=== PATIENT | male | born 1950 | race Hispanic/Latino ===

== ENCOUNTER 2018-09-06 20:39 | Emergency (ER) | payer OTHER ==
[2018-09-06 22:12] LABS: APPEARANCE,URINE Clear (CLEAR); BILIRUBIN,URINE Negative (NEGATIVE); COLOR,URINE Yellow (YELLOW); GLUCOSE, URINE (UA) Negative (NEGATIVE); KETONES,URINE Negative (NEGATIVE); LEUKOCYTE ESTERASE ,URINE Negative (NEGATIVE); NITRATE,URINE Negative (NEGATIVE); OCCULT BLOOD,URINE Negative (NEGATIVE); PROTEIN,URINE Negative (NEGATIVE)
[2018-09-06 22:20] LABS: AMPHET/METH SCREEN,URINE NEGATIVE (NEGATIVE); BARBITURATE SCREEN, URINE NEGATIVE (NEGATIVE); BENZODIAZEPINES SCREEN,URINE NEGATIVE (NEGATIVE); CANNABINOID SCREEN,URINE POSITIVE (NEGATIVE); COCAINE SCREEN,URINE NEGATIVE (NEGATIVE); OPIATE SCREEN,URINE NEGATIVE (NEGATIVE); PHENCYCLIDINE SCREEN,URINE NEGATIVE (NEGATIVE)
[2018-09-06 22:25] LABS: BASOPHILS % (AUTO) 1.1 % (0.0-5.0); EOSINOPHILS % (AUTO) 2.2 % (0.0-8.0); HEMATOCRIT 44.2 % (42-54); MEAN CORPUSCULAR HEMOGLOBIN 32.9 pg (27.0-33.0); MEAN CORPUSCULAR HGB CONC 35.2 g/dL (32.0-36.0); MEAN CORPUSCULAR VOLUME 93.3 fL (79-99); MONOCYTES % (AUTO) 10.2 % (3.0-13.0); NEUTROPHILS % (AUTO) 55.5 % (40.0-77.0); NUCLEATED RED BLOOD CELLS 0.1 % (0.0-0.19); PLATELET COUNT (AUTO) 138 K/uL (130-400); RED BLOOD CELL COUNT(AUTO) 4.74 MIL/uL (4.50-6.20); RED CELL DISTRIBUTION WIDTH 14.4 % (11.0-15.5); WHITE BLOOD COUNT (AUTO) 7.7 K/uL (4.8-10.8)
[2018-09-06 22:34] LABS: CREATININE 0.8 mg/dL (0.5-1.5); POTASSIUM 3.7 mmol/L (3.5-5.1)
[2018-09-06 22:38] LABS: ALBUMIN 3.5 g/dL (3.5-5.0); BILIRUBIN,TOTAL 0.4 mg/dL (0.2-1.0); TOTAL PROTEIN, SERUM 8.1 g/dL (6.0-8.3)
[2018-09-06 22:51] LABS: B-TYPE NATRIURETIC PEPTIDE 16 pg/mL (0-100)
[2018-09-06] MEDS ORDERED: THIAMINE HCL 100 MG/ML 2ML VIAL ONE (23:05)
== END 2018-09-06 23:45 | disposition home or self-care (01) ==
LOC: EDH 20:39
DX: F10.929 Alcohol use, unspecified with intoxication, unspecified (principal); R53.1 Weakness; R03.0 Elevated blood-pressure reading, without diagnosis of hypertension
CPT/HCPCS: 36415; 71045; 80053; 80305; 81003; 83880; 84484; 85025; 93005; 96365; 99285; G0480; J3411

== ENCOUNTER 2021-02-20 18:43 | Inpatient (IN) | payer OTHER ==
[~2021-02-20] VITALS: Ht 154.9 cm; Wt 65.0 kg
[~2021-02-20 18:43] MED LIST: ALBUMIN (HUMAN) 25% 50 ML IV ONE; AMINOCAPROIC ACID 5,000MG VIAL IV ONE; HEPARIN 10,000 UNIT/10ML (1,000 UNIT/ML) VIAL IV ONE; MAGNESIUM SULFATE 1 GM/2 ML VIAL IM ONE; NOREPINEPHRINE BITARTRATE 1 MG/1 ML ML IV ONE; PHENYLEPHRINE HCL 10 MG/ML 1ML VIAL IV ONE; SODIUM BICARB 8.4% 50ML SYRINGE IVP ONE
[2021-02-20 19:25] LABS: APPEARANCE,URINE Clear (CLEAR); BILIRUBIN,URINE Negative (NEGATIVE); COLOR,URINE Yellow (YELLOW); GLUCOSE, URINE (UA) Negative (NEGATIVE); KETONES,URINE Negative (NEGATIVE); LEUKOCYTE ESTERASE ,URINE Negative (NEGATIVE); NITRATE,URINE Negative (NEGATIVE); OCCULT BLOOD,URINE Negative (NEGATIVE); PH,URINE 5.5 (5.0-8.0); PROTEIN,URINE Negative (NEGATIVE)
[2021-02-20 19:41] LABS: BASOPHILS % (AUTO) 0.9 % (0.0-5.0); EOSINOPHILS % (AUTO) 0.2 % (0.0-8.0); HEMATOCRIT 37.3 % (42-54); LYMPHOCYTES % (AUTO) 14.9 % (21.0-51.0); MEAN CORPUSCULAR HEMOGLOBIN 33.4 pg (27.0-33.0); MEAN CORPUSCULAR HGB CONC 34.3 g/dL (32.0-36.0); MEAN CORPUSCULAR VOLUME 97.4 fL (79-99); MONOCYTES % (AUTO) 7.7 % (3.0-13.0); NEUTROPHILS % (AUTO) 75.8 % (40.0-77.0); PLATELET COUNT (AUTO) 174 K/uL (130-400); RED BLOOD CELL COUNT(AUTO) 3.83 MIL/uL (4.50-6.20); RED CELL DISTRIBUTION WIDTH 13.2 % (11.0-15.5); WHITE BLOOD COUNT (AUTO) 8.5 K/uL (4.8-10.8)
[2021-02-20 19:55] LABS: CREATININE 0.9 mg/dL (0.5-1.5)
[2021-02-20 20:06] LABS: BILIRUBIN,TOTAL 0.8 mg/dL (0.2-1.0); TOTAL PROTEIN, SERUM 8.4 g/dL (6.0-8.3)
[2021-02-20] MEDS ORDERED: CLOPIDOGREL 300MG TAB PO SCH (20:26)
[2021-02-20] MEDS ORDERED: HEPARIN 5,000 UNIT VIAL IV ONE (20:30)
[2021-02-20] MEDS ORDERED: FUROSEMIDE 40MG VIAL IV ONE (20:30)
[2021-02-20] MEDS ORDERED: METOPROLOL TARTRATE 1 MG/ML 5ML VIAL IV ONE (20:30)
[2021-02-20] MEDS ORDERED: HEPARIN 25,000 UNITS/250ML D5W 250 ML IV SCH (20:30)
[2021-02-20] MEDS ORDERED: ONDANSETRON 4MG INJ IV PRN (21:00)
[2021-02-20] MEDS ORDERED: FUROSEMIDE 20MG VIAL IV SCH (21:00)
[2021-02-20] MEDS ORDERED: LACTULOSE 20 GM/30 ML UDCUP PO PRN (21:00)
[2021-02-20] MEDS ORDERED: NITROGLYCERIN 0.4 MG SL TAB SL PRN (21:00)
[2021-02-20] MEDS ORDERED: POTASSIUM CHLORIDE 10% ELIXIR 20 MEQ/15 ML UDCUP PO PRN (21:00)
[2021-02-20] MEDS ORDERED: ACETAMINOPHEN 325 MG TAB PO PRN ×2 (21:00)
[2021-02-20] MEDS: FAMOTIDINE 20MG TAB PO SCH (21:00)
[2021-02-20] MEDS ORDERED: NITROGLYCERIN 1GM OINT 1 INCH/1GM TD SCH (21:00)
[2021-02-20] MEDS ORDERED: LIDOCAINE HCL-MPF 1% 2ML VIAL IV PRN (21:00)
[2021-02-20] MEDS ORDERED: METOPROLOL TARTRATE 25 MG TAB PO SCH (21:00)
[2021-02-20] MEDS: INSULIN HUMULIN R 100 UNIT/ML 3ML SQ SCH (21:00)
[2021-02-20 21:10] LABS: INR 1.11 (0.85-1.15)
[2021-02-20 21:11] LABS: PARTIAL THROMBOPLASTIN TIME 28.2 SEC (26.3-35.5)
[2021-02-21 03:08] LABS: INR 1.43 (0.85-1.15); PROTHROMBIN TIME 15.1 SEC (9.6-11.6)
[2021-02-21 03:35] LABS: PARTIAL THROMBOPLASTIN TIME > 139.0 SEC (26.3-35.5)
[2021-02-21 05:10] LABS: BASOPHILS % (AUTO) 1.3 % (0.0-5.0); EOSINOPHILS % (AUTO) 0.2 % (0.0-8.0); HEMATOCRIT 33.1 % (42-54); LYMPHOCYTES % (AUTO) 26.8 % (21.0-51.0); MEAN CORPUSCULAR HEMOGLOBIN 33.1 pg (27.0-33.0); MEAN CORPUSCULAR HGB CONC 34.1 g/dL (32.0-36.0); MEAN CORPUSCULAR VOLUME 97.1 fL (79-99); MONOCYTES % (AUTO) 10.7 % (3.0-13.0); NEUTROPHILS % (AUTO) 60.5 % (40.0-77.0); PLATELET COUNT (AUTO) 145 K/uL (130-400); RED BLOOD CELL COUNT(AUTO) 3.41 MIL/uL (4.50-6.20); RED CELL DISTRIBUTION WIDTH 13.1 % (11.0-15.5); WHITE BLOOD COUNT (AUTO) 6.3 K/uL (4.8-10.8)
[2021-02-21 05:35] LABS: ALBUMIN 1.8 g/dL (3.5-5.0); BILIRUBIN,TOTAL 0.6 mg/dL (0.2-1.0); CREATININE 0.6 mg/dL (0.5-1.5); MAGNESIUM 1.5 mg/dL (1.80-2.40); THYROID STIMULATING HORMONE 3.6 uIU/mL (0.36-3.74); TOTAL PROTEIN, SERUM 5.4 g/dL (6.0-8.3)
[2021-02-21 05:38] LABS: POTASSIUM 2.9 mmol/L (3.5-5.1)
[2021-02-21] MEDS: KCL 20 MEQ ERTAB PO PRN (05:47)
[2021-02-21] MEDS: INSULIN HUMULIN R 100 UNIT/ML 3ML SQ SCH ×4 (07:30→21:00)
[2021-02-21] MEDS: ASPIRIN 81 MG EC TAB PO SCH (08:27)
[2021-02-21] MEDS: FUROSEMIDE 20MG VIAL IV SCH ×3 (08:27→21:01)
[2021-02-21] MEDS: FAMOTIDINE 20MG TAB PO SCH ×2 (08:27→21:01)
[2021-02-21] MEDS ORDERED: METOPROLOL SUCCINATE 50 MG TAB.SR.24H PO SCH (09:00)
[2021-02-21] MEDS: ENOXAPARIN SODIUM 30 MG/0.3 ML SQ SCH ×2 (10:57→21:01)
[2021-02-21] MEDS ORDERED: THIAMINE HCL 100 MG/ML 2ML VIAL IVP SCH (15:00)
[2021-02-21] MEDS: ATORVASTATIN 40 MG TABLET PO SCH (21:01)
[2021-02-22] VITALS (51 sets, daily range): BP systolic 70–169; BP diastolic 33–114
[2021-02-22] MEDS ORDERED: DOPAMINE HCL 400 MG/D5%-WATER 250 ML IV STA (02:07)
[2021-02-22] MEDS ORDERED: MORPHINE 2 MG SYG IVP STA (02:13)
[2021-02-22 04:34] LABS: BASOPHILS % (AUTO) 1.7 % (0.0-5.0); EOSINOPHILS % (AUTO) 0.4 % (0.0-8.0); LYMPHOCYTES % (AUTO) 24.4 % (21.0-51.0); MEAN CORPUSCULAR HEMOGLOBIN 32.7 pg (27.0-33.0); MEAN CORPUSCULAR HGB CONC 32.9 g/dL (32.0-36.0); MEAN CORPUSCULAR VOLUME 99.5 fL (79-99); MONOCYTES % (AUTO) 8.4 % (3.0-13.0); NEUTROPHILS % (AUTO) 64.7 % (40.0-77.0); PLATELET COUNT (AUTO) 186 K/uL (130-400); RED BLOOD CELL COUNT(AUTO) 3.82 MIL/uL (4.50-6.20); RED CELL DISTRIBUTION WIDTH 13.2 % (11.0-15.5); WHITE BLOOD COUNT (AUTO) 7.5 K/uL (4.8-10.8)
[2021-02-22 04:58] LABS: BILIRUBIN,TOTAL 0.7 mg/dL (0.2-1.0); CREATININE 1.2 mg/dL (0.5-1.5); POTASSIUM 4.1 mmol/L (3.5-5.1); TOTAL PROTEIN, SERUM 8.3 g/dL (6.0-8.3)
[2021-02-22] MEDS: INSULIN HUMULIN R 100 UNIT/ML 3ML SQ SCH ×4 (07:30→21:00)
[2021-02-22] MEDS ORDERED: LORAZEPAM 2 MG/ML 1 ML VIAL IVP SCH (08:30)
[2021-02-22] MEDS: THIAMINE HCL 100 MG TABLET PO SCH (09:00)
[2021-02-22] MEDS: PRENATAL VITAMIN RX TABLET PO SCH (09:00)
[2021-02-22] MEDS: FAMOTIDINE 20MG TAB PO SCH ×2 (09:00→21:13)
[2021-02-22] MEDS: ASPIRIN 81 MG EC TAB PO SCH (09:00)
[2021-02-22] MEDS: FUROSEMIDE 20MG VIAL IV SCH ×3 (10:24→21:13)
[2021-02-22] MEDS ORDERED: IOHEXOL 350 MG/ML 100ML INFUS..BTL IV ONE (12:08)
[2021-02-22] MEDS ORDERED: IOHEXOL-350 50ML VIAL IV ONE (12:08)
[2021-02-22] MEDS ORDERED: MIDAZOLAM HCL 1 MG/ML 2ML VIAL ONE (12:08)
[2021-02-22] MEDS ORDERED: NITROGLYCERIN 2 MG VIAL IV ONE (12:08)
[2021-02-22] MEDS ORDERED: LIDOCAINE HCL 400MG/20ML VIAL ONE (12:09)
[2021-02-22] MEDS ORDERED: FENTANYL CITRATE PF 50 MCG/1 ML 2ML VIAL ONE (12:09)
[2021-02-22] MEDS ORDERED: PHARMACY COMMUNICATION MISC SCH (14:00)
[2021-02-22] MEDS: 0.9%NACL 10ML VIAL IVP SCH ×2 (14:00→21:14)
[2021-02-22] MEDS ORDERED: KCL 20 MEQ ERTAB PO PRN (14:30)
[2021-02-22] MEDS ORDERED: DIAZEPAM 5 MG/ML 2 ML SYG IVP ONE (14:30)
[2021-02-22] MEDS ORDERED: POTASSIUM CHLORIDE 20MEQ/100ML 100 ML IV PRN ×2 (14:30)
[2021-02-22] MEDS ORDERED: LORAZEPAM 2 MG/ML 1 ML VIAL IVP PRN (14:30)
[2021-02-22] MEDS ORDERED: MAGNESIUM 2GM PREMIX 50ML 50 ML IV PRN (14:30)
[2021-02-22] MEDS ORDERED: NOREPINEPHRIN 4MG/NS 250ML 250 ML IV ONE (14:30)
[2021-02-22] MEDS ORDERED: LIDOCAINE HCL-MPF 1% 2ML VIAL IV PRN ×2 (14:30)
[2021-02-22] MEDS ORDERED: POTASSIUM CHLORIDE 10% ELIXIR 20 MEQ/15 ML UDCUP PO PRN (14:30)
[2021-02-22] MEDS: M.V.I. IV [ADULT] 10 ML, FOLIC ACID 1 MG, THIAMINE HCL 100 MG in 0.9%NACL 1000ML 1,000 ML IV SCH (15:46)
[2021-02-22] MEDS: [UNRECOGNIZED DRUG - REMARK] MISC SCH (17:26)
[2021-02-22] MEDS: KCL 20 MEQ ERTAB PO PRN ×2 (17:51→21:13)
[2021-02-22] MEDS: POTASSIUM CHLORIDE 20MEQ/100ML 100 ML IV PRN (17:51)
[2021-02-22] MEDS ORDERED: HEPARIN 25,000 UNITS/250ML D5W 250 ML IV PRN (18:00)
[2021-02-22] MEDS: IPRATROPIUM 0.5 MG/2.5 ML INH IH SCH ×2 (18:00→18:57)
[2021-02-22] MEDS: ATORVASTATIN 40 MG TABLET PO SCH (21:13)
[2021-02-22 21:22] LABS: MAGNESIUM 1.9 mg/dL (1.80-2.40); POTASSIUM 3.8 mmol/L (3.5-5.1)
[2021-02-22 22:51] LABS: INR 1.16 (0.85-1.15); PROTHROMBIN TIME 12.5 SEC (9.6-11.6)
[2021-02-22 22:52] LABS: PARTIAL THROMBOPLASTIN TIME 29.2 SEC (26.3-35.5)
[2021-02-22] MEDS ORDERED: HEPARIN 5,000 UNIT VIAL ONE (23:05)
[2021-02-22] MEDS: MAGNESIUM 2GM PREMIX 50ML 50 ML IV SCH (23:20)
[2021-02-23] VITALS (111 sets, daily range): BP systolic 77–137; BP diastolic 42–90
[2021-02-23] MEDS: IPRATROPIUM 0.5 MG/2.5 ML INH IH SCH ×3 (00:52→18:51)
[2021-02-23 04:00] LABS: ALBUMIN 2.2 g/dL (3.5-5.0); BILIRUBIN,TOTAL 0.6 mg/dL (0.2-1.0); CREATININE 0.9 mg/dL (0.5-1.5); MAGNESIUM 8.9 mg/dL (1.80-2.40); PHOSPHORUS 3.8 mg/dL (2.5-4.9); POTASSIUM 4.2 mmol/L (3.5-5.1); THYROID STIMULATING HORMONE 3.45 uIU/mL (0.36-3.74); TOTAL PROTEIN, SERUM 6.8 g/dL (6.0-8.3)
[2021-02-23 04:32] LABS: ABG BASE EXCESS 0.8 mmol/L (-2.0-3.0); ABG HCO3 23.6 mmol/L (21.0-28.0); ABG OXYGEN SATURATION 95.4 % (95.0-99.0); ABG PCO2 33 mmHg (35-48)
[2021-02-23 05:09] LABS: HEMATOCRIT 33.4 % (42-54); MEAN CORPUSCULAR HEMOGLOBIN 32.9 pg (27.0-33.0); MEAN CORPUSCULAR HGB CONC 33.5 g/dL (32.0-36.0); MEAN CORPUSCULAR VOLUME 98.2 fL (79-99); RED BLOOD CELL COUNT(AUTO) 3.4 MIL/uL (4.50-6.20); RED CELL DISTRIBUTION WIDTH 13.2 % (11.0-15.5); WHITE BLOOD COUNT (AUTO) 5.8 K/uL (4.8-10.8)
[2021-02-23 05:22] LABS: INR 1.23 (0.85-1.15); PROTHROMBIN TIME 13.2 SEC (9.6-11.6)
[2021-02-23 05:43] LABS: PARTIAL THROMBOPLASTIN TIME < 20.0 SEC (26.3-35.5)
[2021-02-23] MEDS ORDERED: HEPARIN 5,000 UNIT VIAL ONE (06:18)
[2021-02-23] MEDS: 0.9%NACL 10ML VIAL IVP SCH ×3 (06:21→23:58)
[2021-02-23] MEDS: INSULIN HUMULIN R 100 UNIT/ML 3ML SQ SCH ×4 (07:30→21:00)
[2021-02-23] MEDS: [UNRECOGNIZED DRUG - REMARK] MISC SCH ×3 (08:00→17:00)
[2021-02-23] MEDS: THIAMINE HCL 100 MG TABLET PO SCH (08:46)
[2021-02-23] MEDS: ASPIRIN 81 MG EC TAB PO SCH (08:46)
[2021-02-23] MEDS: LORAZEPAM 2 MG/ML 1 ML VIAL IVP PRN ×5 (08:48→23:03)
[2021-02-23] MEDS: FAMOTIDINE 20MG TAB PO SCH ×2 (08:48→21:00)
[2021-02-23] MEDS: PRENATAL VITAMIN RX TABLET PO SCH (08:48)
[2021-02-23] MEDS: FUROSEMIDE 20MG VIAL IV SCH ×2 (08:49→13:19)
[2021-02-23 09:23] LABS: ALBUMIN 2.4 g/dL (3.5-5.0); BILIRUBIN,TOTAL 0.6 mg/dL (0.2-1.0); CREATININE 0.9 mg/dL (0.5-1.5); POTASSIUM 4.1 mmol/L (3.5-5.1)
[2021-02-23] MEDS: M.V.I. IV [ADULT] 10 ML, FOLIC ACID 1 MG, THIAMINE HCL 100 MG in 0.9%NACL 1000ML 1,000 ML IV SCH (11:13)
[2021-02-23 14:19] LABS: PARTIAL THROMBOPLASTIN TIME > 139.0 SEC (26.3-35.5)
[2021-02-23] MEDS ORDERED: PHARMACY COMMUNICATION MISC SCH (15:00)
[2021-02-23 16:09] LABS: HEMATOCRIT 30.5 % (42-54); MEAN CORPUSCULAR HEMOGLOBIN 32.7 pg (27.0-33.0); MEAN CORPUSCULAR HGB CONC 32.5 g/dL (32.0-36.0); MEAN CORPUSCULAR VOLUME 100.7 fL (79-99); RED BLOOD CELL COUNT(AUTO) 3.03 MIL/uL (4.50-6.20); RED CELL DISTRIBUTION WIDTH 13.2 % (11.0-15.5); WHITE BLOOD COUNT (AUTO) 6.6 K/uL (4.8-10.8)
[2021-02-23 20:53] LABS: POTASSIUM 3.9 mmol/L (3.5-5.1)
[2021-02-23] MEDS: ATORVASTATIN 40 MG TABLET PO SCH (21:00)
[2021-02-23] MEDS ORDERED: AMIODARONE 150MG VIAL ONE (21:08)
[2021-02-23] MEDS ORDERED: AMIODARONE 900MG VIAL IV ONE (21:10)
[2021-02-23] MEDS ORDERED: AMIODARONE 900MG VIAL 900 MG in DEXTROSE 5%-WATER 500 ML IV SCH (21:30)
[2021-02-23] MEDS ORDERED: AMIODARONE 900MG VIAL 150 MG in DEXTROSE 5%-WATER 100 ML IV SCH (21:30)
[2021-02-23] MEDS ORDERED: PROTAMINE SULFATE 10 MG/ML 5 ML VIAL IVP ONE (23:30)
[2021-02-23 23:47] LABS: HEMATOCRIT 28.8 % (42-54)
[2021-02-24] VITALS (63 sets, daily range): BP systolic 85–140; BP diastolic 36–81
[2021-02-24] LABS: ABG BASE EXCESS 0.3 mmol/L (-2.0-3.0); ABG HCO3 23.5 mmol/L (21.0-28.0); ABG OXYGEN SATURATION 96.9 % (95.0-99.0); ABG PCO2 33 mmHg (35-48)
[2021-02-24] MEDS: IPRATROPIUM 0.5 MG/2.5 ML INH IH SCH ×4 (00:19→18:52)
[2021-02-24] MEDS: POTASSIUM CHLORIDE 20MEQ/100ML 100 ML IV PRN (02:00)
[2021-02-24] MEDS: FUROSEMIDE 20MG VIAL IV SCH ×4 (02:01→21:29)
[2021-02-24] MEDS ORDERED: HYDROMORPHONE 0.5 MG SYG (0.5MG/0.5ML) ONE (02:15)
[2021-02-24] MEDS ORDERED: HYDROMORPHONE 0.5 MG SYG (0.5MG/0.5ML) IVP ONE (02:30)
[2021-02-24] MEDS ORDERED: FUROSEMIDE 20MG VIAL IV ONE (04:00)
[2021-02-24 04:37] LABS: HEMATOCRIT 30.7 % (42-54)
[2021-02-24 05:24] LABS: ALBUMIN 2.2 g/dL (3.5-5.0); BILIRUBIN,TOTAL 1.3 mg/dL (0.2-1.0); POTASSIUM 4.3 mmol/L (3.5-5.1); TOTAL PROTEIN, SERUM 6.1 g/dL (6.0-8.3)
[2021-02-24] MEDS: 0.9%NACL 10ML VIAL IVP SCH ×3 (06:00→22:00)
[2021-02-24 06:48] LABS: HEMATOCRIT 29.7 % (42-54)
[2021-02-24] MEDS ORDERED: CALCIUM GLUC 1GM/10ML VIAL IVPB SCH (07:00)
[2021-02-24] MEDS ORDERED: 0.9%NACL 50ML IV SCH (07:00)
[2021-02-24 07:05] LABS: ABG BASE EXCESS 0.7 mmol/L (-2.0-3.0); ABG HCO3 24.5 mmol/L (21.0-28.0); ABG OXYGEN SATURATION 95.1 % (95.0-99.0); ABG PCO2 36 mmHg (35-48)
[2021-02-24] MEDS: INSULIN HUMULIN R 100 UNIT/ML 3ML SQ SCH ×4 (07:23→21:00)
[2021-02-24] MEDS: FAMOTIDINE 20MG TAB PO SCH ×2 (08:23→21:28)
[2021-02-24] MEDS: PRENATAL VITAMIN RX TABLET PO SCH (08:23)
[2021-02-24] MEDS: [UNRECOGNIZED DRUG - REMARK] MISC SCH ×3 (08:23→17:00)
[2021-02-24] MEDS: ASPIRIN 81 MG EC TAB PO SCH (08:23)
[2021-02-24] MEDS: THIAMINE HCL 100 MG TABLET PO SCH (08:23)
[2021-02-24] MEDS: CALCIUM GLUC 1GM 1 GM in 0.9%NACL 100ML 100 ML IV SCH ×3 (08:23→22:45)
[2021-02-24] MEDS: LORAZEPAM 2 MG/ML 1 ML VIAL IVP PRN (08:51)
[2021-02-24] MEDS: M.V.I. IV [ADULT] 10 ML, FOLIC ACID 1 MG, THIAMINE HCL 100 MG in 0.9%NACL 1000ML 1,000 ML IV SCH (13:48)
[2021-02-24 14:28] LABS: HEMATOCRIT 30.4 % (42-54)
[2021-02-24 20:16] LABS: HEMATOCRIT 29.5 % (42-54)
[2021-02-24 20:58] LABS: MAGNESIUM 1.7 mg/dL (1.80-2.40); POTASSIUM 3.5 mmol/L (3.5-5.1)
[2021-02-24] MEDS ORDERED: AMIODARONE 200 MG TABLET PO ONE (21:00)
[2021-02-24] MEDS ORDERED: CALCIUM GLUC 1GM/10ML VIAL ONE (21:17)
[2021-02-24] MEDS: MAGNESIUM 2GM PREMIX 50ML 50 ML IV SCH (21:28)
[2021-02-24] MEDS: DOCUSATE SODIUM 100 MG CAP PO SCH (21:29)
[2021-02-24] MEDS: ATORVASTATIN 40 MG TABLET PO SCH (21:29)
[2021-02-24] MEDS: KCL 20 MEQ ERTAB PO PRN ×2 (21:31→23:30)
[2021-02-24] MEDS: HEPARIN 5,000 UNIT VIAL SQ SCH (21:33)
[2021-02-25] VITALS (43 sets, daily range): BP systolic 104–177; BP diastolic 48–109
[2021-02-25] MEDS: IPRATROPIUM 0.5 MG/2.5 ML INH IH SCH ×5 (00:22→23:46)
[2021-02-25] MEDS: LORAZEPAM 2 MG/ML 1 ML VIAL IVP PRN (01:02)
[2021-02-25 04:08] LABS: HEMATOCRIT 27.5 % (42-54); MEAN CORPUSCULAR HEMOGLOBIN 30.6 pg (27.0-33.0); MEAN CORPUSCULAR HGB CONC 32.7 g/dL (32.0-36.0); MEAN CORPUSCULAR VOLUME 93.5 fL (79-99); RED BLOOD CELL COUNT(AUTO) 2.94 MIL/uL (4.50-6.20); RED CELL DISTRIBUTION WIDTH 17.5 % (11.0-15.5)
[2021-02-25 04:32] LABS: ALBUMIN 2.2 g/dL (3.5-5.0); BILIRUBIN,TOTAL 0.9 mg/dL (0.2-1.0); CREATININE 0.9 mg/dL (0.5-1.5); MAGNESIUM 2.2 mg/dL (1.80-2.40); POTASSIUM 3.8 mmol/L (3.5-5.1); TOTAL PROTEIN, SERUM 6.2 g/dL (6.0-8.3)
[2021-02-25] MEDS: KCL 20 MEQ ERTAB PO PRN (06:30)
[2021-02-25] MEDS: 0.9%NACL 10ML VIAL IVP SCH (06:32)
[2021-02-25] MEDS: HEPARIN 5,000 UNIT VIAL SQ SCH ×3 (06:32→21:07)
[2021-02-25] MEDS: INSULIN HUMULIN R 100 UNIT/ML 3ML SQ SCH ×4 (07:30→21:00)
[2021-02-25] MEDS: [UNRECOGNIZED DRUG - REMARK] MISC SCH ×3 (08:00→17:00)
[2021-02-25] MEDS: METOPROLOL TARTRATE 1 MG/ML 5ML VIAL IV SCH (08:30)
[2021-02-25] MEDS: FUROSEMIDE 20MG VIAL IV SCH ×3 (08:39→21:06)
[2021-02-25] MEDS: FAMOTIDINE 20MG TAB PO SCH ×2 (08:42→21:04)
[2021-02-25] MEDS: AMIODARONE 200 MG TABLET PO SCH (08:42)
[2021-02-25] MEDS: PRENATAL VITAMIN RX TABLET PO SCH (08:42)
[2021-02-25] MEDS: DOCUSATE SODIUM 100 MG CAP PO SCH ×2 (08:42→21:00)
[2021-02-25] MEDS: THIAMINE HCL 100 MG TABLET PO SCH (08:42)
[2021-02-25] MEDS: ASPIRIN 81 MG EC TAB PO SCH (10:06)
[2021-02-25] MEDS: M.V.I. IV [ADULT] 10 ML, FOLIC ACID 1 MG, THIAMINE HCL 100 MG in 0.9%NACL 1000ML 1,000 ML IV SCH (10:19)
[2021-02-25 18:15] LABS: CREATININE 0.9 mg/dL (0.5-1.5); POTASSIUM 4.1 mmol/L (3.5-5.1)
[2021-02-25] MEDS: CALCIUM GLUC 1GM 1 GM in 0.9%NACL 100ML 100 ML IV SCH (21:00)
[2021-02-25] MEDS: ATORVASTATIN 40 MG TABLET PO SCH (21:04)
[2021-02-25] MEDS: LEVETIRACETAM 500 MG TABLET PO SCH (21:04)
[2021-02-25] MEDS ORDERED: CHLORDIAZEPOXIDE HCL 25 MG CAP PO PRN (22:30)
[2021-02-25] MEDS ORDERED: METOPROLOL TARTRATE 1 MG/ML 5ML VIAL IV PRN (23:30)
[2021-02-26] VITALS (56 sets, daily range): BP systolic 65–137; BP diastolic 27–84
[2021-02-26] MEDS: LORAZEPAM 2 MG/ML 1 ML VIAL IVP PRN (02:38)
[2021-02-26 04:44] LABS: BASOPHILS % (AUTO) 0.8 % (0.0-5.0); EOSINOPHILS % (AUTO) 1.8 % (0.0-8.0); HEMATOCRIT 27.7 % (42-54); LYMPHOCYTES % (AUTO) 22.8 % (21.0-51.0); MEAN CORPUSCULAR HEMOGLOBIN 30.7 pg (27.0-33.0); MEAN CORPUSCULAR HGB CONC 33.6 g/dL (32.0-36.0); MEAN CORPUSCULAR VOLUME 91.4 fL (79-99); MONOCYTES % (AUTO) 9.4 % (3.0-13.0); NEUTROPHILS % (AUTO) 64.8 % (40.0-77.0); PLATELET COUNT (AUTO) 115 K/uL (130-400); RED BLOOD CELL COUNT(AUTO) 3.03 MIL/uL (4.50-6.20); RED CELL DISTRIBUTION WIDTH 16.5 % (11.0-15.5); WHITE BLOOD COUNT (AUTO) 7.1 K/uL (4.8-10.8)
[2021-02-26 05:23] LABS: ALBUMIN 2.1 g/dL (3.5-5.0); BILIRUBIN,TOTAL 0.8 mg/dL (0.2-1.0); CREATININE 0.9 mg/dL (0.5-1.5); POTASSIUM 3.8 mmol/L (3.5-5.1); TOTAL PROTEIN, SERUM 6.1 g/dL (6.0-8.3)
[2021-02-26] MEDS: INSULIN HUMULIN R 100 UNIT/ML 3ML SQ SCH ×4 (05:38→21:00)
[2021-02-26] MEDS: KCL 20 MEQ ERTAB PO PRN (06:04)
[2021-02-26] MEDS: HEPARIN 5,000 UNIT VIAL SQ SCH ×2 (06:19→19:30)
[2021-02-26] MEDS: IPRATROPIUM 0.5 MG/2.5 ML INH IH SCH ×4 (06:52→23:23)
[2021-02-26] MEDS: [UNRECOGNIZED DRUG - REMARK] MISC SCH ×3 (08:00→17:00)
[2021-02-26] MEDS: DOCUSATE SODIUM 100 MG CAP PO SCH ×2 (08:14→21:00)
[2021-02-26] MEDS: LEVETIRACETAM 500 MG TABLET PO SCH ×2 (08:14→21:59)
[2021-02-26] MEDS: ASPIRIN 81 MG EC TAB PO SCH (08:15)
[2021-02-26] MEDS: FAMOTIDINE 20MG TAB PO SCH ×2 (08:15→21:58)
[2021-02-26] MEDS: FUROSEMIDE 20 MG TABLET PO SCH ×2 (08:15→20:00)
[2021-02-26] MEDS: THIAMINE HCL 100 MG TABLET PO SCH (08:18)
[2021-02-26] MEDS: AMIODARONE 200 MG TABLET PO SCH (08:19)
[2021-02-26] MEDS: PRENATAL VITAMIN RX TABLET PO SCH (08:19)
[2021-02-26] MEDS: METOPROLOL TARTRATE 1 MG/ML 5ML VIAL IV SCH (08:30)
[2021-02-26] MEDS ORDERED: METOPROLOL TARTRATE 25 MG TAB PO SCH (09:00)
[2021-02-26] MEDS: M.V.I. IV [ADULT] 10 ML, FOLIC ACID 1 MG, THIAMINE HCL 100 MG in 0.9%NACL 1000ML 1,000 ML IV SCH (09:00)
[2021-02-26] MEDS ORDERED: LISINOPRIL 2.5 MG TABLET PO SCH (09:00)
[2021-02-26 12:14] LABS: HEMATOCRIT 28.7 % (42-54); MEAN CORPUSCULAR HEMOGLOBIN 30.9 pg (27.0-33.0); MEAN CORPUSCULAR HGB CONC 32.8 g/dL (32.0-36.0); MEAN CORPUSCULAR VOLUME 94.4 fL (79-99); RED BLOOD CELL COUNT(AUTO) 3.04 MIL/uL (4.50-6.20); RED CELL DISTRIBUTION WIDTH 16.5 % (11.0-15.5); WHITE BLOOD COUNT (AUTO) 6.2 K/uL (4.8-10.8)
[2021-02-26] MEDS ORDERED: NOREPINEPHRIN 4MG/NS 250ML 250 ML IV ONE (14:16)
[2021-02-26] MEDS ORDERED: 0.9%NACL 1000ML 1,000 ML IV ONE (14:18)
[2021-02-26 14:38] LABS: ABG BASE EXCESS -2.2 mmol/L (-2.0-3.0); ABG HCO3 21.9 mmol/L (21.0-28.0); ABG OXYGEN SATURATION 93.3 % (95.0-99.0); ABG PCO2 36 mmHg (35-48)
[2021-02-26 14:53] LABS: HEMATOCRIT 29.9 % (42-54); MEAN CORPUSCULAR HEMOGLOBIN 30.8 pg (27.0-33.0); MEAN CORPUSCULAR HGB CONC 33.1 g/dL (32.0-36.0); MEAN CORPUSCULAR VOLUME 93.1 fL (79-99); RED BLOOD CELL COUNT(AUTO) 3.21 MIL/uL (4.50-6.20); RED CELL DISTRIBUTION WIDTH 16.4 % (11.0-15.5); WHITE BLOOD COUNT (AUTO) 8.9 K/uL (4.8-10.8)
[2021-02-26 15:06] LABS: INR 1.05 (0.85-1.15); PROTHROMBIN TIME 11.4 SEC (9.6-11.6)
[2021-02-26 15:07] LABS: PARTIAL THROMBOPLASTIN TIME 28.5 SEC (26.3-35.5)
[2021-02-26 15:17] LABS: CREATININE 0.9 mg/dL (0.5-1.5); POTASSIUM 4.1 mmol/L (3.5-5.1)
[2021-02-26] MEDS ORDERED: LIDOCAINE HCL 400MG/20ML VIAL ONE (15:24)
[2021-02-26 21:00] LABS: HEMATOCRIT 31.9 % (42-54)
[2021-02-26 21:52] LABS: MEAN CORPUSCULAR HEMOGLOBIN 31.5 pg (27.0-33.0); MEAN CORPUSCULAR HGB CONC 33.6 g/dL (32.0-36.0); MEAN CORPUSCULAR VOLUME 93.6 fL (79-99); RED BLOOD CELL COUNT(AUTO) 3.46 MIL/uL (4.50-6.20); RED CELL DISTRIBUTION WIDTH 16.2 % (11.0-15.5); WHITE BLOOD COUNT (AUTO) 13.8 K/uL (4.8-10.8)
[2021-02-26] MEDS: PANTOPRAZOLE 40 MG/VIAL IVP SCH (21:58)
[2021-02-26] MEDS: ATORVASTATIN 40 MG TABLET PO SCH (21:58)
[2021-02-26] MEDS ORDERED: HYDROMORPHONE 1 MG INJ IVP ONE (22:00)
[2021-02-26 22:27] LABS: MAGNESIUM 1.9 mg/dL (1.80-2.40); POTASSIUM 4.2 mmol/L (3.5-5.1)
[2021-02-26] MEDS ORDERED: CALCIUM GLUC 1GM/10ML VIAL ONE (23:25)
[2021-02-26] MEDS ORDERED: FUROSEMIDE 20MG VIAL IV ONE (23:30)
[2021-02-26] MEDS: MAGNESIUM 2GM PREMIX 50ML 50 ML IV SCH (23:36)
[2021-02-26] MEDS: CALCIUM GLUC 1GM 1 GM in 0.9%NACL 100ML 100 ML IV SCH (23:38)
[2021-02-27] VITALS (47 sets, daily range): BP systolic 78–140; BP diastolic 36–76
[2021-02-27] MEDS ORDERED: DOPAMINE 800MG/D5 250ML 250 ML IV ONE (00:54)
[2021-02-27 04:30] LABS: ABG BASE EXCESS -4.2 mmol/L (-2.0-3.0); ABG HCO3 20.4 mmol/L (21.0-28.0); ABG OXYGEN SATURATION 89.9 % (95.0-99.0); ABG PCO2 37 mmHg (35-48)
[2021-02-27] MEDS ORDERED: SODIUM BICARB 50MEQ 50ML VIAL IV STA (04:45)
[2021-02-27 05:32] LABS: HEMATOCRIT 27.8 % (42-54); MEAN CORPUSCULAR HEMOGLOBIN 30.7 pg (27.0-33.0); MEAN CORPUSCULAR HGB CONC 33.1 g/dL (32.0-36.0); MEAN CORPUSCULAR VOLUME 92.7 fL (79-99); RED CELL DISTRIBUTION WIDTH 16.3 % (11.0-15.5); WHITE BLOOD COUNT (AUTO) 10.5 K/uL (4.8-10.8)
[2021-02-27 05:42] LABS: INR 1.06 (0.85-1.15); PROTHROMBIN TIME 11.5 SEC (9.6-11.6)
[2021-02-27 05:43] LABS: PARTIAL THROMBOPLASTIN TIME 28.1 SEC (26.3-35.5)
[2021-02-27 05:53] LABS: ALBUMIN 2.2 g/dL (3.5-5.0); CREATININE 1.4 mg/dL (0.5-1.5); POTASSIUM 4.2 mmol/L (3.5-5.1); TOTAL PROTEIN, SERUM 6.4 g/dL (6.0-8.3)
[2021-02-27] MEDS: IPRATROPIUM 0.5 MG/2.5 ML INH IH SCH ×3 (06:31→19:12)
[2021-02-27] MEDS: [UNRECOGNIZED DRUG - REMARK] MISC SCH ×3 (08:00→17:00)
[2021-02-27] MEDS: LEVETIRACETAM 500 MG TABLET PO SCH ×2 (09:00→21:00)
[2021-02-27] MEDS ORDERED: CEFAZOLIN SODIUM 1 GM VIAL IVP PRN (11:30)
[2021-02-27] MEDS ORDERED: AMINOCAPROIC ACID IV PRN (12:30)
[2021-02-27] MEDS ORDERED: EPINEPHRINE PF 1MG AMP 10 MG in 0.9% NACL 250ML 240 ML IV PRN (12:30)
[2021-02-27] MEDS ORDERED: NACL 0.9% IV PRN (12:30)
[2021-02-27] MEDS ORDERED: AMINOCAPROIC ACID 5,000MG VIAL ONE (13:26)
[2021-02-27] MEDS ORDERED: LIDOCAINE PF 100MG/5ML (2%) SYRINGE 5ML ONE ×2 (13:26→13:28)
[2021-02-27] MEDS ORDERED: NOREPINEPHRINE BITARTRATE 1 MG/1 ML ML IV ONE (13:26)
[2021-02-27] MEDS ORDERED: HEPARIN 10,000 UNIT/10ML (1,000 UNIT/ML) VIAL ONE ×2 (13:26→14:44)
[2021-02-27] MEDS ORDERED: EPINEPHRINE PF 1MG AMP ONE (13:26)
[2021-02-27] MEDS ORDERED: ESMOLOL HCL 10 MG/ML 10 ML VIAL ONE (13:26)
[2021-02-27] MEDS ORDERED: ROCURONIUM 10MG/1ML SYR 10 MG/ML ML ONE ×2 (13:27→13:50)
[2021-02-27] MEDS ORDERED: PROPOFOL 10 MG/ML 20ML VIAL IV ONE (13:27)
[2021-02-27] MEDS ORDERED: FENTANYL CITRATE PF 50 MCG/1 ML 20ML VIAL IJ ONE (13:27)
[2021-02-27] MEDS ORDERED: SUCCINYLCHOLINE CHLORIDE 20 MG/ML 10 ML VIAL ONE (13:27)
[2021-02-27] MEDS ORDERED: CEFAZOLIN SODIUM 1 GM VIAL ONE (13:37)
[2021-02-27] MEDS ORDERED: PAPAVERINE HCL 30 MG/ML 2ML VIAL ONE (13:37)
[2021-02-27 14:38] LABS: ABG BASE EXCESS -3.1 mmol/L (-2.0-3.0); ABG HCO3 21.4 mmol/L (21.0-28.0); ABG OXYGEN SATURATION 98.9 % (95.0-99.0); ABG PCO2 36 mmHg (35-48)
[2021-02-27] MEDS ORDERED: AMIODARONE 150MG VIAL ONE (14:47)
[2021-02-27 15:13] LABS: ABG BASE EXCESS -1.5 mmol/L (-2.0-3.0); ABG HCO3 22.7 mmol/L (21.0-28.0); ABG OXYGEN SATURATION 99.1 % (95.0-99.0); ABG PCO2 36 mmHg (35-48)
[2021-02-27 16:19] LABS: ABG HCO3 20.6 mmol/L (21.0-28.0); ABG PCO2 31 mmHg (35-48)
[2021-02-27 16:50] LABS: ABG BASE EXCESS 3.9 mmol/L (-2.0-3.0); ABG HCO3 27.8 mmol/L (21.0-28.0); ABG PCO2 39 mmHg (35-48)
[2021-02-27] MEDS ORDERED: 0.9%NACL 1000ML 1,000 ML IV SCH (17:00)
[2021-02-27] MEDS ORDERED: POTASSIUM PHOS 15 mMOL+NS250ML 250 ML IV PRN (17:00)
[2021-02-27] MEDS ORDERED: PROPOFOL 1000 MG/100 ML 100 ML IV PRN (17:00)
[2021-02-27] MEDS ORDERED: DEXTROSE 50%-WATER 50 ML DISP.SYRIN IV PRN (17:00)
[2021-02-27] MEDS ORDERED: INSULIN REGULAR, HUMAN 3ML 100 UNIT in 0.9%NACL 100ML 99 ML IV SCH ×2 (17:00)
[2021-02-27] MEDS ORDERED: ACETAMINOPHEN 650 MG SUPPOSITORY RC PRN (17:00)
[2021-02-27] MEDS ORDERED: NITROGLYCERIN 50MG/D5W 250ML 250 BOT IV SCH (17:00)
[2021-02-27] MEDS ORDERED: EPINEPHRINE PF 1MG AMP 10 MG in DEXTROSE 5%-WATER 250 ML IV PRN (17:00)
[2021-02-27] MEDS ORDERED: ONDANSETRON 4MG INJ IV PRN (17:00)
[2021-02-27] MEDS ORDERED: GLUCAGON 1MG KIT 1 MG ML IM PRN (17:00)
[2021-02-27] MEDS ORDERED: SODIUM BICARB 50MEQ 50ML VIAL 100 ML ONE (17:00)
[2021-02-27] MEDS ORDERED: MORPHINE 2 MG SYG IV PRN ×2 (17:00→18:00)
[2021-02-27] MEDS ORDERED: ACETAMINOPHEN 325 MG TAB PO PRN (17:00)
[2021-02-27] MEDS ORDERED: NOREPINEPHRIN 4MG/NS 250ML 250 ML IV PRN (17:00)
[2021-02-27] MEDS ORDERED: 0.9% NACL 500ML IV.SOLN 500 ML IV SCH (17:00)
[2021-02-27] MEDS ORDERED: 0.9%NACL 10ML VIAL IVP PRN (17:00)
[2021-02-27] MEDS ORDERED: AMINOCAPROIC ACID 5,000MG VIAL 15,000 MG in 0.9% NACL 250ML 250 ML IV SCH (17:00)
[2021-02-27] MEDS ORDERED: MAGNESIUM 2GM PREMIX 50ML 50 ML IV PRN (17:00)
[2021-02-27] MEDS ORDERED: PROTAMINE SULFATE 10 MG/ML 25ML VIAL IV ONE (17:21)
[2021-02-27 17:22] LABS: ABG BASE EXCESS 1.5 mmol/L (-2.0-3.0); ABG HCO3 19.5 mmol/L (21.0-28.0); ABG OXYGEN SATURATION 99.2 % (95.0-99.0); ABG PCO2 15 mmHg (35-48)
[2021-02-27] MEDS ORDERED: NITROGLYCERIN 50MG/D5W 250ML 1 BOT ONE (17:28)
[2021-02-27 17:40] LABS: ABG BASE EXCESS 1.4 mmol/L (-2.0-3.0); ABG HCO3 25.6 mmol/L (21.0-28.0); ABG PCO2 39 mmHg (35-48)
[2021-02-27] MEDS ORDERED: ATROPINE 1MG SYG IVP ONE ×2 (17:41→17:43)
[2021-02-27] MEDS ORDERED: PROTAMINE SULFATE 10 MG/ML 5 ML VIAL ONE (17:46)
[2021-02-27] MEDS ORDERED: LORAZEPAM 2 MG/ML 1 ML VIAL IVP SCH (18:30)
[2021-02-27 18:57] LABS: ABG BASE EXCESS -5.6 mmol/L (-2.0-3.0); ABG HCO3 18.2 mmol/L (21.0-28.0); ABG OXYGEN SATURATION 98.7 % (95.0-99.0); ABG PCO2 30 mmHg (35-48)
[2021-02-27 19:06] LABS: HEMATOCRIT 30.5 % (42-54); MEAN CORPUSCULAR HEMOGLOBIN 30.4 pg (27.0-33.0); MEAN CORPUSCULAR HGB CONC 33.1 g/dL (32.0-36.0); MEAN CORPUSCULAR VOLUME 91.9 fL (79-99); RED BLOOD CELL COUNT(AUTO) 3.32 MIL/uL (4.50-6.20); RED CELL DISTRIBUTION WIDTH 17.3 % (11.0-15.5); WHITE BLOOD COUNT (AUTO) 18.6 K/uL (4.8-10.8)
[2021-02-27 19:11] LABS: INR 1.44 (0.85-1.15); PROTHROMBIN TIME 15.2 SEC (9.6-11.6)
[2021-02-27 19:12] LABS: PARTIAL THROMBOPLASTIN TIME 21.1 SEC (26.3-35.5)
[2021-02-27 19:16] LABS: BILIRUBIN,TOTAL 1.9 mg/dL (0.2-1.0); CREATININE 1.5 mg/dL (0.5-1.5); MAGNESIUM 2.7 mg/dL (1.80-2.40); PHOSPHORUS 6.4 mg/dL (2.5-4.9); POTASSIUM 3.5 mmol/L (3.5-5.1)
[2021-02-27] MEDS: PANTOPRAZOLE 40 MG/VIAL IVP SCH ×2 (20:38→21:00)
[2021-02-27] MEDS: SODIUM BICARB 50MEQ 50ML VIAL IV PRN ×7 (20:50→22:55)
[2021-02-27] MEDS: POTASSIUM CHLORIDE 20MEQ/100ML 100 ML IV PRN ×2 (20:59→22:41)
[2021-02-27] MEDS: CEFAZOLIN SODIUM 1 GM VIAL IV SCH (21:10)
[2021-02-27 21:28] LABS: ABG BASE EXCESS -2.4 mmol/L (-2.0-3.0); ABG HCO3 21.7 mmol/L (21.0-28.0); ABG OXYGEN SATURATION 97.5 % (95.0-99.0); ABG PCO2 35 mmHg (35-48)
[2021-02-27] MEDS: ALBUMIN (HUMAN) 5% 250 ML IV PRN ×2 (21:42→23:41)
[2021-02-27] MEDS ORDERED: CALCIUM GLUC 1GM/10ML VIAL ONE (22:16)
[2021-02-27 22:32] LABS: ABG BASE EXCESS -2.2 mmol/L (-2.0-3.0); ABG HCO3 22.2 mmol/L (21.0-28.0); ABG OXYGEN SATURATION 96.1 % (95.0-99.0); ABG PCO2 37 mmHg (35-48)
[2021-02-27] MEDS: CALCIUM GLUC 1GM 1 GM in 0.9%NACL 50ML 50 ML IV PRN (22:41)
[2021-02-27] MEDS ORDERED: ALBUMIN (HUMAN) 5% 250 ML IV ONE (23:36)
[2021-02-27 23:42] LABS: ABG BASE EXCESS -3.7 mmol/L (-2.0-3.0); ABG HCO3 19.9 mmol/L (21.0-28.0); ABG OXYGEN SATURATION 95.6 % (95.0-99.0); ABG PCO2 31 mmHg (35-48)
[2021-02-28] VITALS (123 sets, daily range): BP systolic 63–293; BP diastolic 26–190
[2021-02-28] MEDS: POTASSIUM CHLORIDE 20MEQ/100ML 100 ML IV PRN ×5 (00:07→05:14)
[2021-02-28] MEDS: CALCIUM GLUC 1GM 1 GM in 0.9%NACL 50ML 50 ML IV PRN ×3 (00:08→05:14)
[2021-02-28 00:45] LABS: ABG BASE EXCESS -1.3 mmol/L (-2.0-3.0); ABG HCO3 22.4 mmol/L (21.0-28.0); ABG OXYGEN SATURATION 96.1 % (95.0-99.0); ABG PCO2 34 mmHg (35-48)
[2021-02-28] MEDS ORDERED: CALCIUM GLUC 1GM/10ML VIAL ONE ×2 (00:48→05:12)
[2021-02-28] MEDS: SODIUM BICARB 50MEQ 50ML VIAL IV PRN (00:52)
[2021-02-28 01:47] LABS: ABG BASE EXCESS 1.4 mmol/L (-2.0-3.0); ABG HCO3 24.5 mmol/L (21.0-28.0); ABG OXYGEN SATURATION 95.2 % (95.0-99.0); ABG PCO2 33 mmHg (35-48)
[2021-02-28 03:10] LABS: ABG BASE EXCESS 1.8 mmol/L (-2.0-3.0); ABG HCO3 24.7 mmol/L (21.0-28.0); ABG OXYGEN SATURATION 96.9 % (95.0-99.0); ABG PCO2 32 mmHg (35-48)
[2021-02-28] MEDS ORDERED: NOREPINEPHRIN 8MG/250ML NS PMX 250 ML IV ONE ×4 (03:31→20:34)
[2021-02-28 04:57] LABS: ABG OXYGEN SATURATION 96.3 % (95.0-99.0)
[2021-02-28 05:02] LABS: ABG BASE EXCESS 0.9 mmol/L (-2.0-3.0); ABG HCO3 22.8 mmol/L (21.0-28.0); ABG OXYGEN SATURATION 96.8 % (95.0-99.0); ABG PCO2 27 mmHg (35-48)
[2021-02-28 05:10] LABS: HEMATOCRIT 24.8 % (42-54); MEAN CORPUSCULAR HEMOGLOBIN 30.2 pg (27.0-33.0); MEAN CORPUSCULAR HGB CONC 33.5 g/dL (32.0-36.0); MEAN CORPUSCULAR VOLUME 90.2 fL (79-99); PLATELET COUNT (AUTO) 117 K/uL (130-400); RED BLOOD CELL COUNT(AUTO) 2.75 MIL/uL (4.50-6.20); RED CELL DISTRIBUTION WIDTH 18.3 % (11.0-15.5); WHITE BLOOD COUNT (AUTO) 17.2 K/uL (4.8-10.8)
[2021-02-28 05:21] LABS: INR 1.48 (0.85-1.15); PROTHROMBIN TIME 15.6 SEC (9.6-11.6)
[2021-02-28 05:22] LABS: PARTIAL THROMBOPLASTIN TIME 41.6 SEC (26.3-35.5)
[2021-02-28 05:28] LABS: CREATININE 2.2 mg/dL (0.5-1.5); MAGNESIUM 2.5 mg/dL (1.80-2.40); POTASSIUM 3.6 mmol/L (3.5-5.1)
[2021-02-28] MEDS: IPRATROPIUM 0.5 MG/2.5 ML INH IH SCH ×3 (06:00→12:00)
[2021-02-28 06:33] LABS: ABG BASE EXCESS 0.2 mmol/L (-2.0-3.0); ABG HCO3 21.8 mmol/L (21.0-28.0); ABG OXYGEN SATURATION 94.6 % (95.0-99.0); ABG PCO2 25 mmHg (35-48)
[2021-02-28] MEDS: CEFAZOLIN SODIUM 1 GM VIAL IV SCH ×2 (06:53→14:00)
[2021-02-28] MEDS: [UNRECOGNIZED DRUG - REMARK] MISC SCH ×3 (08:00→17:00)
[2021-02-28] MEDS ORDERED: FUROSEMIDE 20MG VIAL IV SCH (08:30)
[2021-02-28] MEDS: PANTOPRAZOLE 40 MG/VIAL IVP SCH ×2 (09:00→20:37)
[2021-02-28 09:09] LABS: ABG HCO3 28.5 mmol/L (21.0-28.0); ABG OXYGEN SATURATION 90.6 % (95.0-99.0); ABG PCO2 38 mmHg (35-48)
[2021-02-28] MEDS: DEXTROSE 5%-WATER 1,000 ML IV SCH (09:16)
[2021-02-28] MEDS ORDERED: ALBUMIN (HUMAN) 5% 500 ML IV ONE (09:34)
[2021-02-28] MEDS ORDERED: FLUMAZENIL 0.1MG/1ML 5ML VIAL IV SCH (10:30)
[2021-02-28 10:34] LABS: ABG BASE EXCESS 5.3 mmol/L (-2.0-3.0); ABG HCO3 28.6 mmol/L (21.0-28.0); ABG OXYGEN SATURATION 92.4 % (95.0-99.0); ABG PCO2 37 mmHg (35-48)
[2021-02-28] MEDS ORDERED: COMPOUND IV MISC 1 EACH IVSOLN MISC PRN (12:30)
[2021-02-28 12:45] LABS: ABG HCO3 30.4 mmol/L (21.0-28.0); ABG OXYGEN SATURATION 93.5 % (95.0-99.0); ABG PCO2 38 mmHg (35-48)
[2021-02-28] MEDS: LEVETIRACETAM 500 MG in 0.9%NACL 100ML 100 ML IV SCH ×2 (13:41→20:37)
[2021-02-28 15:54] LABS: BASOPHILS % (AUTO) 0.7 % (0.0-5.0); EOSINOPHILS % (AUTO) 2.4 % (0.0-8.0); HEMATOCRIT 21.3 % (42-54); LYMPHOCYTES % (AUTO) 11.2 % (21.0-51.0); MEAN CORPUSCULAR HEMOGLOBIN 30.5 pg (27.0-33.0); MEAN CORPUSCULAR HGB CONC 33.3 g/dL (32.0-36.0); MEAN CORPUSCULAR VOLUME 91.4 fL (79-99); MONOCYTES % (AUTO) 13.8 % (3.0-13.0); NEUTROPHILS % (AUTO) 71.3 % (40.0-77.0); PLATELET COUNT (AUTO) 109 K/uL (130-400); RED BLOOD CELL COUNT(AUTO) 2.33 MIL/uL (4.50-6.20); RED CELL DISTRIBUTION WIDTH 18.4 % (11.0-15.5); WHITE BLOOD COUNT (AUTO) 17.3 K/uL (4.8-10.8)
[2021-02-28 16:06] LABS: ABG BASE EXCESS 3.3 mmol/L (-2.0-3.0); ABG HCO3 26.4 mmol/L (21.0-28.0); ABG OXYGEN SATURATION 95.9 % (95.0-99.0); ABG PCO2 33 mmHg (35-48)
[2021-02-28 16:15] LABS: ALBUMIN 2.7 g/dL (3.5-5.0); BILIRUBIN,TOTAL 3.7 mg/dL (0.2-1.0); CREATININE 2.1 mg/dL (0.5-1.5); MAGNESIUM 2.2 mg/dL (1.80-2.40); POTASSIUM 4.2 mmol/L (3.5-5.1); TOTAL PROTEIN, SERUM 4.9 g/dL (6.0-8.3)
[2021-02-28 18:20] LABS: ABG BASE EXCESS 7.8 mmol/L (-2.0-3.0); ABG OXYGEN SATURATION 96.3 % (95.0-99.0); ABG PCO2 38 mmHg (35-48)
[2021-02-28] MEDS ORDERED: COMPOUND IV REFRIGERATED 1 EACH IVSOLN MISC PRN (19:30)
[2021-03-01] VITALS (43 sets, daily range): BP systolic 86–158; BP diastolic 30–95
[2021-03-01] MEDS: DEXTROSE 5%-WATER 1,000 ML IV SCH ×2 (04:05→23:54)
[2021-03-01 06:27] LABS: HEMATOCRIT 24.4 % (42-54); MEAN CORPUSCULAR HEMOGLOBIN 30.7 pg (27.0-33.0); MEAN CORPUSCULAR HGB CONC 32.4 g/dL (32.0-36.0); MEAN CORPUSCULAR VOLUME 94.9 fL (79-99); RED BLOOD CELL COUNT(AUTO) 2.57 MIL/uL (4.50-6.20); RED CELL DISTRIBUTION WIDTH 18.6 % (11.0-15.5); WHITE BLOOD COUNT (AUTO) 19.2 K/uL (4.8-10.8)
[2021-03-01 06:39] LABS: POTASSIUM 3.6 mmol/L (3.5-5.1)
[2021-03-01] MEDS: IPRATROPIUM 0.5 MG/2.5 ML INH IH SCH ×3 (06:42→18:32)
[2021-03-01] MEDS: [UNRECOGNIZED DRUG - REMARK] MISC SCH ×2 (07:40→12:00)
[2021-03-01] MEDS: POTASSIUM CHLORIDE 20MEQ/100ML 100 ML IV PRN (07:46)
[2021-03-01] MEDS ORDERED: THIAMINE HCL 100 MG/ML 2ML VIAL IVP SCH (09:00)
[2021-03-01 09:50] LABS: ALBUMIN 2.4 g/dL (3.5-5.0); BILIRUBIN,TOTAL 4.4 mg/dL (0.2-1.0); TOTAL PROTEIN, SERUM 5.4 g/dL (6.0-8.3)
[2021-03-01] MEDS: PANTOPRAZOLE 40 MG/VIAL IVP SCH ×2 (10:16→20:10)
[2021-03-01] MEDS: ASPIRIN 81MG CHEW TAB PO SCH (10:16)
[2021-03-01] MEDS ORDERED: ARTIFICAL TEARS SOL 15 ML OU SCH (10:30)
[2021-03-01] MEDS ORDERED: CHLORHEXIDINE GLUCONATE 473 ML MOUTHWASH MM SCH (10:30)
[2021-03-01 10:38] LABS: ABG BASE EXCESS 9.1 mmol/L (-2.0-3.0); ABG HCO3 32.2 mmol/L (21.0-28.0); ABG OXYGEN SATURATION 91.3 % (95.0-99.0); ABG PCO2 38 mmHg (35-48)
[2021-03-01] MEDS: LEVETIRACETAM 500 MG in 0.9%NACL 100ML 100 ML IV SCH ×2 (10:53→20:03)
[2021-03-01] MEDS: ARTIFICAL TEARS SOL 15 ML OU SCH (12:23)
[2021-03-01] MEDS: CHLORHEXIDINE GLUCONATE 473 ML MOUTHWASH MM SCH ×3 (12:23→23:54)
[2021-03-01] MEDS: THIAMINE HCL IV SCH (12:23)
[2021-03-01] MEDS: [UNRECOGNIZED DRUG - OTHER] IV SCH (12:23)
[2021-03-01] MEDS: FUROSEMIDE 20MG VIAL IV SCH (16:19)
[2021-03-01] MEDS: NOREPINEPHRINE BITARTRATE 8 MG in DEXTROSE 5%-WATER 250 ML IV PRN (17:39)
[2021-03-01] MEDS: INSULIN HUMULIN R 100 UNIT/ML 3ML SQ SCH ×2 (18:00→23:53)
[2021-03-01] MEDS: HEPARIN 5,000 UNIT VIAL SQ SCH (23:59)
[2021-03-02] VITALS (24 sets, daily range): BP systolic 85–153; BP diastolic 3–84
[2021-03-02] MEDS: TRAMADOL HCL 50 MG TABLET PO PRN ×4 (00:21→21:48)
[2021-03-02] MEDS: IPRATROPIUM 0.5 MG/2.5 ML INH IH SCH ×4 (00:37→18:54)
[2021-03-02] MEDS: FUROSEMIDE 20MG VIAL IV SCH ×4 (02:34→20:35)
[2021-03-02] MEDS: NOREPINEPHRINE BITARTRATE 8 MG in DEXTROSE 5%-WATER 250 ML IV PRN (03:49)
[2021-03-02 04:35] LABS: BASOPHILS % (AUTO) 0.4 % (0.0-5.0); EOSINOPHILS % (AUTO) 0.5 % (0.0-8.0); HEMATOCRIT 23.7 % (42-54); LYMPHOCYTES % (AUTO) 9.3 % (21.0-51.0); MEAN CORPUSCULAR HEMOGLOBIN 30.3 pg (27.0-33.0); MEAN CORPUSCULAR HGB CONC 32.1 g/dL (32.0-36.0); MEAN CORPUSCULAR VOLUME 94.4 fL (79-99); MONOCYTES % (AUTO) 5.3 % (3.0-13.0); NEUTROPHILS % (AUTO) 83.9 % (40.0-77.0); NUCLEATED RED BLOOD CELLS 0.2 % (0.0-0.19); PLATELET COUNT (AUTO) 117 K/uL (130-400); RED BLOOD CELL COUNT(AUTO) 2.51 MIL/uL (4.50-6.20); RED CELL DISTRIBUTION WIDTH 17.7 % (11.0-15.5); WHITE BLOOD COUNT (AUTO) 17.1 K/uL (4.8-10.8)
[2021-03-02 04:55] LABS: ALBUMIN 2.2 g/dL (3.5-5.0); TOTAL PROTEIN, SERUM 5.2 g/dL (6.0-8.3)
[2021-03-02] MEDS: CHLORHEXIDINE GLUCONATE 473 ML MOUTHWASH MM SCH ×4 (05:37→23:34)
[2021-03-02] MEDS: INSULIN HUMULIN R 100 UNIT/ML 3ML SQ SCH ×4 (06:22→23:35)
[2021-03-02 07:37] LABS: ABG BASE EXCESS 6.6 mmol/L (-2.0-3.0); ABG HCO3 30.5 mmol/L (21.0-28.0); ABG OXYGEN SATURATION 95.3 % (95.0-99.0); ABG PCO2 41 mmHg (35-48)
[2021-03-02] MEDS: LEVETIRACETAM 500 MG in 0.9%NACL 100ML 100 ML IV SCH ×2 (08:01→20:36)
[2021-03-02] MEDS: ASPIRIN 81MG CHEW TAB PO SCH (08:07)
[2021-03-02] MEDS: PANTOPRAZOLE 40 MG/VIAL IVP SCH ×2 (08:07→20:35)
[2021-03-02] MEDS ORDERED: LACTULOSE 20 GM/30 ML UDCUP PO PRN (08:30)
[2021-03-02] MEDS: [UNRECOGNIZED DRUG - OTHER] IV SCH (09:00)
[2021-03-02] MEDS: THIAMINE HCL IV SCH (09:00)
[2021-03-02] MEDS: ARTIFICAL TEARS SOL 15 ML OU SCH (12:00)
[2021-03-02] MEDS: HEPARIN 5,000 UNIT VIAL SQ SCH ×2 (12:26→21:49)
[2021-03-02] MEDS ORDERED: NOREPINEPHRIN 8MG/250ML NS PMX 250 ML IV ONE (19:01)
[2021-03-02] MEDS: DEXTROSE 5%-WATER 1,000 ML IV SCH (20:30)
[2021-03-03] VITALS (60 sets, daily range): BP systolic 80–168; BP diastolic 39–95
[2021-03-03] MEDS: IPRATROPIUM 0.5 MG/2.5 ML INH IH SCH ×2 (00:39→06:18)
[2021-03-03 03:50] LABS: HEMATOCRIT 25.7 % (42-54); MEAN CORPUSCULAR HEMOGLOBIN 30.6 pg (27.0-33.0); MEAN CORPUSCULAR HGB CONC 31.5 g/dL (32.0-36.0); NUCLEATED RED BLOOD CELLS 0.2 % (0.0-0.19); RED BLOOD CELL COUNT(AUTO) 2.65 MIL/uL (4.50-6.20); WHITE BLOOD COUNT (AUTO) 16.7 K/uL (4.8-10.8)
[2021-03-03 03:58] LABS: CREATININE 1.5 mg/dL (0.5-1.5)
[2021-03-03] MEDS: TRAMADOL HCL 50 MG TABLET PO PRN ×4 (05:29→20:46)
[2021-03-03] MEDS: INSULIN HUMULIN R 100 UNIT/ML 3ML SQ SCH ×4 (05:54→23:40)
[2021-03-03] MEDS: CHLORHEXIDINE GLUCONATE 473 ML MOUTHWASH MM SCH ×4 (05:54→23:40)
[2021-03-03] MEDS ORDERED: VANCOMYCIN 1G VIAL IVPB ONE (09:00)
[2021-03-03] MEDS ORDERED: VANCOMYCIN PROTOCOL PER PHARMACY IV SCH (09:00)
[2021-03-03] MEDS: ASPIRIN 81MG CHEW TAB PO SCH (09:23)
[2021-03-03] MEDS: PANTOPRAZOLE 40 MG/VIAL IVP SCH ×2 (09:23→20:26)
[2021-03-03] MEDS: HEPARIN 5,000 UNIT VIAL SQ SCH ×2 (09:29→23:04)
[2021-03-03] MEDS: FUROSEMIDE 20MG VIAL IV SCH (09:30)
[2021-03-03] MEDS: LEVETIRACETAM 500 MG in 0.9%NACL 100ML 100 ML IV SCH ×2 (09:31→20:25)
[2021-03-03] MEDS: THIAMINE HCL IV SCH (09:32)
[2021-03-03] MEDS: [UNRECOGNIZED DRUG - OTHER] IV SCH (09:32)
[2021-03-03] MEDS ORDERED: FUROSEMIDE 100 MG/NS 100ML IV SCH ×2 (10:00)
[2021-03-03] MEDS ORDERED: PHARMACY COMMUNICATION MISC SCH (10:00)
[2021-03-03] MEDS: CEFEPIME HCL 2 GM VIAL IVP SCH ×2 (10:10→20:26)
[2021-03-03] MEDS: ZOSYN 3.375GM +NS 50ML IV SCH ×2 (10:13→18:33)
[2021-03-03] MEDS: IPRATROPIUM/ALBUTEROL SULFATE 3 ML SOLUTION IH SCH ×3 (11:44→23:12)
[2021-03-03] MEDS ORDERED: VANCOMYCIN 1.25GM/NS 250ML IVPB SCH ×2 (12:00)
[2021-03-03] MEDS ORDERED: METRONIDAZOLE 500MG/100ML BAG 100 ML IVPB SCH (14:00)
[2021-03-03] MEDS: METRONIDAZOLE 500 MG TABLET PO SCH ×2 (14:49→22:39)
[2021-03-03] MEDS: ARTIFICAL TEARS SOL 15 ML OU SCH (14:52)
[2021-03-03] MEDS: DEXTROSE 5%-WATER 1,000 ML IV SCH (16:30)
[2021-03-03] MEDS ORDERED: NOREPINEPHRIN 8MG/250ML NS PMX 250 ML IV ONE (23:29)
[2021-03-04] VITALS (81 sets, daily range): BP systolic 77–154; BP diastolic 32–105
[2021-03-04] MEDS ORDERED: 0.9%NACL 50ML 50 ML IV ONE (01:29)
[2021-03-04] MEDS: ZOSYN 3.375GM +NS 50ML IV SCH ×2 (01:39→08:50)
[2021-03-04] MEDS: TRAMADOL HCL 50 MG TABLET PO PRN ×3 (01:47→08:56)
[2021-03-04] MEDS ORDERED: PROPOFOL 1000 MG/100 ML 100 ML IV ONE (02:05)
[2021-03-04 03:31] LABS: BASOPHILS % (AUTO) 0.1 % (0.0-5.0); EOSINOPHILS % (AUTO) 0.1 % (0.0-8.0); HEMATOCRIT 24.6 % (42-54); LYMPHOCYTES % (AUTO) 9.6 % (21.0-51.0); MEAN CORPUSCULAR HEMOGLOBIN 30.7 pg (27.0-33.0); MEAN CORPUSCULAR HGB CONC 31.7 g/dL (32.0-36.0); MEAN CORPUSCULAR VOLUME 96.9 fL (79-99); MONOCYTES % (AUTO) 5.8 % (3.0-13.0); NEUTROPHILS % (AUTO) 83.8 % (40.0-77.0); NUCLEATED RED BLOOD CELLS 0.3 % (0.0-0.19); PLATELET COUNT (AUTO) 80 K/uL (130-400); RED BLOOD CELL COUNT(AUTO) 2.54 MIL/uL (4.50-6.20); RED CELL DISTRIBUTION WIDTH 16.8 % (11.0-15.5); WHITE BLOOD COUNT (AUTO) 14.5 K/uL (4.8-10.8)
[2021-03-04 03:49] LABS: CREATININE 1.7 mg/dL (0.5-1.5); PHOSPHORUS 3.5 mg/dL (2.5-4.9); POTASSIUM 3.5 mmol/L (3.5-5.1)
[2021-03-04] MEDS: POTASSIUM CHLORIDE 20MEQ/100ML 100 ML IV PRN (04:12)
[2021-03-04 04:17] LABS: ABG BASE EXCESS 5.9 mmol/L (-2.0-3.0); ABG HCO3 30.7 mmol/L (21.0-28.0); ABG OXYGEN SATURATION 95.5 % (95.0-99.0); ABG PCO2 45 mmHg (35-48)
[2021-03-04] MEDS: INSULIN HUMULIN R 100 UNIT/ML 3ML SQ SCH ×4 (05:28→23:28)
[2021-03-04] MEDS: CHLORHEXIDINE GLUCONATE 473 ML MOUTHWASH MM SCH ×4 (05:28→23:24)
[2021-03-04] MEDS: METRONIDAZOLE 500 MG TABLET PO SCH ×3 (05:30→20:38)
[2021-03-04] MEDS: IPRATROPIUM/ALBUTEROL SULFATE 3 ML SOLUTION IH SCH ×4 (06:49→23:36)
[2021-03-04] MEDS: THIAMINE HCL IV SCH (08:49)
[2021-03-04] MEDS: [UNRECOGNIZED DRUG - OTHER] IV SCH (08:49)
[2021-03-04] MEDS: LEVETIRACETAM 500 MG in 0.9%NACL 100ML 100 ML IV SCH ×2 (08:49→20:37)
[2021-03-04] MEDS: ASPIRIN 81MG CHEW TAB PO SCH (08:50)
[2021-03-04] MEDS: HEPARIN 5,000 UNIT VIAL SQ SCH ×2 (08:51→20:38)
[2021-03-04] MEDS: CEFEPIME HCL 2 GM VIAL IVP SCH ×2 (08:52→20:37)
[2021-03-04] MEDS: PANTOPRAZOLE 40 MG/VIAL IVP SCH ×2 (08:55→20:37)
[2021-03-04] MEDS ORDERED: HYDRALAZINE 20MG/ML VIAL IV PRN (11:30)
[2021-03-04] MEDS: DEXTROSE 5%-WATER 1,000 ML IV SCH (12:30)
[2021-03-04] MEDS: VANCOMYCIN 750MG VIAL IVPB SCH (13:29)
[2021-03-04] MEDS: ARTIFICAL TEARS SOL 15 ML OU SCH (13:30)
[2021-03-04] MEDS ORDERED: FUROSEMIDE 100MG VIAL 100 MG in 0.9%NACL 100ML 100 ML IV SCH (14:30)
[2021-03-04] MEDS ORDERED: FOLIC ACID 1 MG TABLET PO ONE (15:00)
[2021-03-04] MEDS ORDERED: CYANOCOBALAMIN (VITAMIN B-12) 1,000 MCG TABLET PO SCH (15:00)
[2021-03-04 15:26] LABS: % IRON SATURATION 70.3 % (30-44)
[2021-03-04] MEDS ORDERED: FOLIC ACID 1 MG TABLET ONE (17:27)
[2021-03-04] MEDS ORDERED: EPOETIN ALFA-EPBX (ESRD) 10,000 UNIT/ML VIAL SQ SCH ×2 (17:30→18:30)
[2021-03-04] MEDS ORDERED: TRAMADOL /APAP 37.5MG/325MG TAB PO PRN (18:00)
[2021-03-04] MEDS ORDERED: PHARMACY COMMUNICATION MISC SCH (18:30)
[2021-03-04] MEDS ORDERED: DEXTROSE 5%-WATER 1,000 ML IV SCH (18:30)
[2021-03-04] MEDS: TRAMADOL /APAP 37.5MG/325MG TAB PO PRN (19:13)
[2021-03-04] MEDS ORDERED: FUROSEMIDE 100 MG/NS 100ML IV SCH ×2 (19:30)
[2021-03-04] MEDS ORDERED: SODIUM CHLORIDE 7% INHALATION 4 ML VIAL.NEB IH ONE (23:37)
[2021-03-05] VITALS (57 sets, daily range): BP systolic 86–163; BP diastolic 37–77
[2021-03-05] MEDS: TRAMADOL /APAP 37.5MG/325MG TAB PO PRN ×2 (00:22→05:08)
[2021-03-05] MEDS ORDERED: NOREPINEPHRIN 8MG/250ML NS PMX 250 ML IV ONE (03:45)
[2021-03-05 04:58] LABS: HEMATOCRIT 24.8 % (42-54); MEAN CORPUSCULAR HEMOGLOBIN 31.1 pg (27.0-33.0); MEAN CORPUSCULAR HGB CONC 32.3 g/dL (32.0-36.0); MEAN CORPUSCULAR VOLUME 96.5 fL (79-99); NUCLEATED RED BLOOD CELLS 0.6 % (0.0-0.19); RED BLOOD CELL COUNT(AUTO) 2.57 MIL/uL (4.50-6.20); RED CELL DISTRIBUTION WIDTH 16.9 % (11.0-15.5); WHITE BLOOD COUNT (AUTO) 14.8 K/uL (4.8-10.8)
[2021-03-05] MEDS: CHLORHEXIDINE GLUCONATE 473 ML MOUTHWASH MM SCH ×3 (05:07→18:00)
[2021-03-05] MEDS: METRONIDAZOLE 500 MG TABLET PO SCH ×2 (05:10→16:30)
[2021-03-05 05:14] LABS: ALBUMIN 1.8 g/dL (3.5-5.0); BILIRUBIN,TOTAL 8.7 mg/dL (0.2-1.0); CREATININE 1.6 mg/dL (0.5-1.5); POTASSIUM 3.3 mmol/L (3.5-5.1); TOTAL PROTEIN, SERUM 5.5 g/dL (6.0-8.3)
[2021-03-05] MEDS: INSULIN HUMULIN R 100 UNIT/ML 3ML SQ SCH ×3 (05:22→18:00)
[2021-03-05] MEDS: POTASSIUM CHLORIDE 20MEQ/100ML 100 ML IV PRN ×2 (05:34→09:07)
[2021-03-05] MEDS: IPRATROPIUM/ALBUTEROL SULFATE 3 ML SOLUTION IH SCH ×4 (07:01→23:16)
[2021-03-05 07:18] LABS: ABG BASE EXCESS 4.2 mmol/L (-2.0-3.0); ABG HCO3 28.2 mmol/L (21.0-28.0); ABG PCO2 40 mmHg (35-48)
[2021-03-05] MEDS: PANTOPRAZOLE 40 MG/VIAL IVP SCH ×2 (08:19→21:40)
[2021-03-05] MEDS: ASPIRIN 81MG CHEW TAB PO SCH (08:19)
[2021-03-05] MEDS: CEFEPIME HCL 2 GM VIAL IVP SCH ×2 (08:19→21:40)
[2021-03-05] MEDS: LEVETIRACETAM 500 MG in 0.9%NACL 100ML 100 ML IV SCH ×2 (08:19→21:40)
[2021-03-05] MEDS: THIAMINE HCL IV SCH (08:20)
[2021-03-05] MEDS: [UNRECOGNIZED DRUG - OTHER] IV SCH (08:20)
[2021-03-05] MEDS: DEXTROSE 5%-WATER 1,000 ML IV SCH (08:30)
[2021-03-05] MEDS: VANCOMYCIN 750MG VIAL IVPB SCH (11:48)
[2021-03-05] MEDS: ARTIFICAL TEARS SOL 15 ML OU SCH (11:51)
[2021-03-05] MEDS: MIDODRINE HCL 5 MG TABLET PO SCH ×2 (13:21→21:40)
[2021-03-05] MEDS: HEPARIN 5,000 UNIT VIAL SQ SCH ×2 (13:27→21:40)
[2021-03-05 18:36] LABS: CREATININE 1.6 mg/dL (0.5-1.5)
[2021-03-05] MEDS: ZOSYN 3.375GM +NS 50ML IV SCH (19:00)
[2021-03-06] VITALS (48 sets, daily range): BP systolic 83–142; BP diastolic 37–90
[2021-03-06] MEDS: CHLORHEXIDINE GLUCONATE 473 ML MOUTHWASH MM SCH ×4 (00:36→18:00)
[2021-03-06 03:47] LABS: ABG BASE EXCESS -0.5 mmol/L (-2.0-3.0); ABG HCO3 23.7 mmol/L (21.0-28.0); ABG OXYGEN SATURATION 92.1 % (95.0-99.0); ABG PCO2 37 mmHg (35-48)
[2021-03-06 04:22] LABS: BASOPHILS % (AUTO) 0.3 % (0.0-5.0); EOSINOPHILS % (AUTO) 0.8 % (0.0-8.0); HEMATOCRIT 24.8 % (42-54); LYMPHOCYTES % (AUTO) 11.5 % (21.0-51.0); MEAN CORPUSCULAR HGB CONC 32.3 g/dL (32.0-36.0); MEAN CORPUSCULAR VOLUME 96.1 fL (79-99); MONOCYTES % (AUTO) 5.8 % (3.0-13.0); NEUTROPHILS % (AUTO) 79.9 % (40.0-77.0); NUCLEATED RED BLOOD CELLS 1.5 % (0.0-0.19); PLATELET COUNT (AUTO) 100 K/uL (130-400); RED BLOOD CELL COUNT(AUTO) 2.58 MIL/uL (4.50-6.20); RED CELL DISTRIBUTION WIDTH 16.8 % (11.0-15.5); WHITE BLOOD COUNT (AUTO) 14.7 K/uL (4.8-10.8)
[2021-03-06 04:37] LABS: CREATININE 1.8 mg/dL (0.5-1.5); POTASSIUM 3.7 mmol/L (3.5-5.1)
[2021-03-06] MEDS: DEXTROSE 5%-WATER 1,000 ML IV SCH (04:41)
[2021-03-06] MEDS: TRAMADOL /APAP 37.5MG/325MG TAB PO PRN ×3 (04:42→20:48)
[2021-03-06] MEDS ORDERED: POTASSIUM CHLORIDE 10% ELIXIR 20 MEQ/15 ML UDCUP ONE (05:42)
[2021-03-06] MEDS: INSULIN HUMULIN R 100 UNIT/ML 3ML SQ SCH ×4 (06:00→18:00)
[2021-03-06] MEDS: MIDODRINE HCL 5 MG TABLET PO SCH ×3 (06:14→20:47)
[2021-03-06] MEDS: IPRATROPIUM/ALBUTEROL SULFATE 3 ML SOLUTION IH SCH ×4 (06:15→23:25)
[2021-03-06] MEDS ORDERED: EPOETIN ALFA-EPBX (ESRD) 10,000 UNIT/ML VIAL SQ SCH (07:00)
[2021-03-06] MEDS: ZOSYN 3.375GM +NS 50ML IV SCH ×2 (07:53→20:48)
[2021-03-06] MEDS: PANTOPRAZOLE 40 MG/VIAL IVP SCH ×2 (07:53→20:48)
[2021-03-06] MEDS: ASPIRIN 81MG CHEW TAB PO SCH (07:53)
[2021-03-06] MEDS: [UNRECOGNIZED DRUG - OTHER] IV SCH (08:07)
[2021-03-06] MEDS: LEVETIRACETAM 500 MG in 0.9%NACL 100ML 100 ML IV SCH (08:07)
[2021-03-06] MEDS: THIAMINE HCL IV SCH (08:07)
[2021-03-06] MEDS ORDERED: METOLAZONE 2.5 MG TABLET PO SCH (10:00)
[2021-03-06] MEDS: HEPARIN 5,000 UNIT VIAL SQ SCH ×2 (11:48→22:24)
[2021-03-06] MEDS: ARTIFICAL TEARS SOL 15 ML OU SCH (12:39)
[2021-03-06 13:19] LABS: ABG BASE EXCESS -1.9 mmol/L (-2.0-3.0); ABG HCO3 22.6 mmol/L (21.0-28.0); ABG PCO2 37 mmHg (35-48)
[2021-03-06 13:31] LABS: INR 2.62 (0.85-1.15); PROTHROMBIN TIME 26.2 SEC (9.6-11.6)
[2021-03-06 13:33] LABS: PARTIAL THROMBOPLASTIN TIME 74.3 SEC (26.3-35.5)
[2021-03-06] MEDS: VANCOMYCIN 750MG VIAL IVPB SCH (13:42)
[2021-03-06] MEDS ORDERED: LIDOCAINE HCL 1% 20 ML VIAL ONE (15:56)
[2021-03-06] MEDS ORDERED: LINEZOLID 600 MG/ISO-OSM 300 ML IV SCH (16:00)
[2021-03-06 16:24] LABS: ABG BASE EXCESS -1.4 mmol/L (-2.0-3.0); ABG HCO3 22.8 mmol/L (21.0-28.0); ABG OXYGEN SATURATION 95.5 % (95.0-99.0); ABG PCO2 37 mmHg (35-48)
[2021-03-06 16:27] LABS: HEMATOCRIT 27.8 % (42-54); MEAN CORPUSCULAR HEMOGLOBIN 31.2 pg (27.0-33.0); MEAN CORPUSCULAR HGB CONC 30.9 g/dL (32.0-36.0); MEAN CORPUSCULAR VOLUME 100.7 fL (79-99); NUCLEATED RED BLOOD CELLS 3.5 % (0.0-0.19); RED BLOOD CELL COUNT(AUTO) 2.76 MIL/uL (4.50-6.20); WHITE BLOOD COUNT (AUTO) 15.6 K/uL (4.8-10.8)
[2021-03-06] MEDS ORDERED: PHARMACY COMMUNICATION MISC SCH (16:30)
[2021-03-06 16:40] LABS: INR 2.83 (0.85-1.15); PROTHROMBIN TIME 28.1 SEC (9.6-11.6)
[2021-03-06 16:41] LABS: PARTIAL THROMBOPLASTIN TIME 67.9 SEC (26.3-35.5)
[2021-03-06 16:43] LABS: ALBUMIN 1.7 g/dL (3.5-5.0); BILIRUBIN,TOTAL 10.5 mg/dL (0.2-1.0); CREATININE 2.1 mg/dL (0.5-1.5); POTASSIUM 4.3 mmol/L (3.5-5.1); TOTAL PROTEIN, SERUM 5.5 g/dL (6.0-8.3)
[2021-03-06 18:58] LABS: ABG HCO3 19.4 mmol/L (21.0-28.0); ABG OXYGEN SATURATION 95.4 % (95.0-99.0); ABG PCO2 33 mmHg (35-48)
[2021-03-06] MEDS ORDERED: LORAZEPAM 2 MG/ML 1 ML VIAL IVP PRN (20:00)
[2021-03-06] MEDS ORDERED: PHENYLEPHRINE HCL 100 MG in 0.9% NACL 250ML 250 ML IV SCH (20:00)
[2021-03-06] MEDS ORDERED: LEVETIRACETAM 750 MG in 0.9%NACL 100ML 100 ML IV SCH (21:00)
[2021-03-06] MEDS ORDERED: SODIUM BICARB 50MEQ 50ML VIAL IV SCH (21:00)
[2021-03-06] MEDS ORDERED: LEVETIRACETAM 100 MG/ML 5 ML UDCUP PO SCH (21:00)
[2021-03-06] MEDS ORDERED: LEVETIRACETAM 250 MG TABLET PO SCH ×2 (21:00)
[2021-03-06] MEDS ORDERED: ALBUMIN (HUMAN) 5% 250 ML IV SCH (22:10)
[2021-03-06] MEDS ORDERED: NOREPINEPHRIN 8MG/250ML NS PMX 250 ML IV ONE (22:18)
[2021-03-06] MEDS ORDERED: DEXTROSE 5 %-0.45 % NACL 1,000 ML IV SCH (22:30)
[2021-03-06] MEDS ORDERED: EPINEPHRINE PF 1MG AMP 10 MG in 0.9% NACL 250ML 250 ML IV STA (22:42)
[2021-03-06] MEDS ORDERED: EPINEPHRINE PF 1MG AMP 10 MG in 0.9% NACL 250ML 240 ML IV PRN (22:55)
[2021-03-06] MEDS ORDERED: DEXTROSE 5 %-0.45 % NACL 1,000 ML IV ONE (23:00)
[2021-03-06] MEDS ORDERED: CACL 1GM SYG IVP PRN (23:00)
[2021-03-06 23:09] LABS: ABG BASE EXCESS -6.1 mmol/L (-2.0-3.0); ABG HCO3 18.6 mmol/L (21.0-28.0); ABG OXYGEN SATURATION 98.6 % (95.0-99.0); ABG PCO2 35 mmHg (35-48)
[2021-03-06] MEDS ORDERED: ALBUMIN (HUMAN) 5% 500 ML IV ONE (23:10)
[2021-03-06] MEDS ORDERED: DIGOXIN 250 MCG/ML 2ML AMP IV SCH (23:30)
[2021-03-07] VITALS (22 sets, daily range): BP systolic 73–114; BP diastolic 30–75
[2021-03-07] MEDS: INSULIN HUMULIN R 100 UNIT/ML 3ML SQ SCH
[2021-03-07 00:37] LABS: ABG BASE EXCESS -8.1 mmol/L (-2.0-3.0); ABG HCO3 18.6 mmol/L (21.0-28.0); ABG OXYGEN SATURATION 98.7 % (95.0-99.0); ABG PCO2 43 mmHg (35-48)
[2021-03-07] MEDS: SODIUM BICARB 8.4% 50ML SYRINGE IVP PRN ×5 (00:41→04:58)
[2021-03-07 02:16] LABS: ABG BASE EXCESS -6.6 mmol/L (-2.0-3.0); ABG HCO3 18.7 mmol/L (21.0-28.0); ABG OXYGEN SATURATION 98.8 % (95.0-99.0); ABG PCO2 37 mmHg (35-48)
[2021-03-07] MEDS ORDERED: LEVETIRACETAM 750 MG in 0.9%NACL 100ML 100 ML IV ONE (04:00)
[2021-03-07 04:06] LABS: ABG BASE EXCESS -8.4 mmol/L (-2.0-3.0); ABG HCO3 21.9 mmol/L (21.0-28.0); ABG OXYGEN SATURATION 52.4 % (95.0-99.0); ABG PCO2 67 mmHg (35-48)
[2021-03-07] MEDS: LORAZEPAM 2 MG/ML 1 ML VIAL ONE ×2 (04:13→04:15)
[2021-03-07] MEDS ORDERED: LORAZEPAM 2 MG/ML 1 ML VIAL IVP ONE (04:30)
[2021-03-07] MEDS ORDERED: SODIUM BICARB 50MEQ 50ML VIAL 100 ML ONE (04:33)
[2021-03-07] MEDS: MIDODRINE HCL 5 MG TABLET PO SCH (04:43)
[2021-03-07] MEDS ORDERED: LEVETIRACETAM 500 MG in 0.9%NACL 100ML 100 ML IV SCH (06:00)
[2021-03-07] MEDS ORDERED: LINEZOLID 600 MG/ISO-OSM 300 ML IV SCH (07:00)
== END 2021-03-07 05:02 | DRG 233 ==
LOC: EDH 18:43 → EDHIP 20:53 → OBSVTOIN 20:53 → 4BH 02-22 00:03 → 2DH 02-22 03:02 → 2CH 02-22 07:26 → 2CV 02-27 14:28 → 2CH 02-28 15:20
PROVIDERS: ADMIT Internal Medicine Critical Care Medicine; ATTEND Internal Medicine Critical Care Medicine
PROC: 4A023N7 Measurement of Cardiac Sampling and Pressure, Left Heart, Percutaneous Approach (ICD-10-PCS; 2021-02-22)
PROC: B2111ZZ Fluoroscopy of Multiple Coronary Arteries using Low Osmolar Contrast (ICD-10-PCS; 2021-02-22)
PROC: 5A1223Z Performance of Cardiac Pacing, Continuous (ICD-10-PCS; 2021-02-22)
PROC: 30233N1 Transfusion of Nonautologous Red Blood Cells into Peripheral Vein, Percutaneous Approach (ICD-10-PCS; 2021-02-23)
PROC: 5A09357 Assistance with Respiratory Ventilation, Less than 24 Consecutive Hours, Continuous Positive Airway Pressure (ICD-10-PCS; 2021-02-23)
PROC: 5A09357 Assistance with Respiratory Ventilation, Less than 24 Consecutive Hours, Continuous Positive Airway Pressure (ICD-10-PCS; 2021-02-25)
PROC: 5A09357 Assistance with Respiratory Ventilation, Less than 24 Consecutive Hours, Continuous Positive Airway Pressure (ICD-10-PCS; 2021-02-26)
PROC: 05HM33Z Insertion of Infusion Device into Right Internal Jugular Vein, Percutaneous Approach (ICD-10-PCS; 2021-02-26)
PROC: B543ZZA Ultrasonography of Right Jugular Veins, Guidance (ICD-10-PCS; 2021-02-26)
PROC: 06BQ4ZZ Excision of Left Saphenous Vein, Percutaneous Endoscopic Approach (ICD-10-PCS; 2021-02-27)
PROC: 5A1221Z Performance of Cardiac Output, Continuous (ICD-10-PCS; 2021-02-27)
PROC: 02100Z9 Bypass Coronary Artery, One Artery from Left Internal Mammary, Open Approach (ICD-10-PCS; principal; 2021-02-27 13:44)
PROC: 021209W Bypass Coronary Artery, Three Arteries from Aorta with Autologous Venous Tissue, Open Approach (ICD-10-PCS; 2021-02-27 13:44)
PROC: 5A09357 Assistance with Respiratory Ventilation, Less than 24 Consecutive Hours, Continuous Positive Airway Pressure (ICD-10-PCS; 2021-03-01)
PROC: 5A09357 Assistance with Respiratory Ventilation, Less than 24 Consecutive Hours, Continuous Positive Airway Pressure (ICD-10-PCS; 2021-03-02)
PROC: 5A09457 Assistance with Respiratory Ventilation, 24-96 Consecutive Hours, Continuous Positive Airway Pressure (ICD-10-PCS; 2021-03-05)
DX: I21.4 Non-ST elevation (NSTEMI) myocardial infarction (principal); I50.33 Acute on chronic diastolic (congestive) heart failure; G93.41 Metabolic encephalopathy; J69.0 Pneumonitis due to inhalation of food and vomit; J96.01 Acute respiratory failure with hypoxia; J95.1 Acute pulmonary insufficiency following thoracic surgery; E87.1 Hypo-osmolality and hyponatremia; F10.239 Alcohol dependence with withdrawal, unspecified; E87.3 Alkalosis; D62 Acute posthemorrhagic anemia; D68.9 Coagulation defect, unspecified; E87.0 Hyperosmolality and hypernatremia; I13.0 Hypertensive heart and chronic kidney disease with heart failure and stage 1 through stage 4 chronic kidney disease, or unspecified chronic kidney disease; I44.2 Atrioventricular block, complete; I47.2 Ventricular tachycardia; N17.9 Acute kidney failure, unspecified; R18.8 Other ascites; E87.6 Hypokalemia; I48.91 Unspecified atrial fibrillation; D63.8 Anemia in other chronic diseases classified elsewhere; D69.6 Thrombocytopenia, unspecified; E11.22 Type 2 diabetes mellitus with diabetic chronic kidney disease; Z66 Do not resuscitate; E78.00 Pure hypercholesterolemia, unspecified; E78.1 Pure hyperglyceridemia; E78.5 Hyperlipidemia, unspecified; F12.90 Cannabis use, unspecified, uncomplicated; F17.200 Nicotine dependence, unspecified, uncomplicated; F41.9 Anxiety disorder, unspecified; I25.10 Atherosclerotic heart disease of native coronary artery without angina pectoris; I46.9 Cardiac arrest, cause unspecified; K74.60 Unspecified cirrhosis of liver; N18.9 Chronic kidney disease, unspecified; R56.9 Unspecified convulsions; I95.9 Hypotension, unspecified; R58 Hemorrhage, not elsewhere classified; R62.7 Adult failure to thrive; E87.8 Other disorders of electrolyte and fluid balance, not elsewhere classified; Z20.822 Contact with and (suspected) exposure to COVID-19; Z68.27 Body mass index [BMI] 27.0-27.9, adult; S70.11XA Contusion of right thigh, initial encounter; Y93.89 Activity, other specified; Y92.238 Other place in hospital as the place of occurrence of the external cause; Y99.8 Other external cause status; Z79.82 Long term (current) use of aspirin; Z79.899 Other long term (current) drug therapy; Y83.8 Other surgical procedures as the cause of abnormal reaction of the patient, or of later complication, without mention of misadventure at the time of the procedure; Y92.89 Other specified places as the place of occurrence of the external cause
CPT/HCPCS: 33210; 36415; 36600; 70450; 71045; 74176; 76705; 76882; 80048; 80053; 80061; 80076; 81003; 82140; 82270; 82330; 82435; 82550; 82565; 82803; 82947; 82948; 83036; 83540; 83550; 83605; 83735; 83874; 83880; 84100; 84132; 84145; 84295; 84443; 84484; 84520; 85014; 85018; 85025; 85027; 85347; 85610; 85730; 86850; 86900; 86901; 86923; 87635; 87804; 93005; 93306; 93356; 93454; 93880; 93926; 93970; 93971; 94002; 94003; 94010; 94150; 94640; 94660; 97039; 99156; 99157; 99291; A4357; A7048; C1894; C9113; C9803; G0378; J0171; J0282; J0330; J0461; J0610; J0690; J0692; J1160; J1170; J1265; J1644; J1650; J1815; J1940; J1953; J2001; J2060; J2250; J2370; J2405; J2440; J2543; J2704; J2720; J3010; J3370; J3411; J3475; J3480; J3490; J7030; J7040; J7042; J7050; J7060; J7070; J7120; P9016; P9045; P9047; Q9967